=== PATIENT | male | born 1965 | race Two or more races ===

== ENCOUNTER 2017-07-30 00:38 | Emergency (ER) | payer MEDICAID ==
[~2017-07-30] VITALS: Ht 175.3 cm; Wt 103.0 kg
[2017-07-30] MEDS ORDERED: METOPROLOL TARTRATE 50 MG TAB PO ONE (01:45)
[2017-07-30 03:08] VITALS: BP 187/126
[2017-07-30] MEDS ORDERED: hydrALAZINE HCL 20 MG/ML VL IV ONE (03:15)
[2017-07-30] MEDS ORDERED: hydrALAZINE HCL 20 MG/ML VL ONE (03:25)
== END 2017-07-30 03:08 | disposition home or self-care (01) ==
LOC: EDBD 00:38 → ER 03:08
DX: S01.01XA Laceration without foreign body of scalp, initial encounter (principal); S09.90XA Unspecified injury of head, initial encounter; E78.5 Hyperlipidemia, unspecified; I10 Essential (primary) hypertension; E66.01 Morbid (severe) obesity due to excess calories; Z68.33 Body mass index [BMI] 33.0-33.9, adult; Z88.8 Allergy status to other drugs, medicaments and biological substances; W22.8XXA Striking against or struck by other objects, initial encounter; Y93.89 Activity, other specified; Y92.89 Other specified places as the place of occurrence of the external cause; Y99.8 Other external cause status
CPT/HCPCS: 12001; 70450; 96374; 99284; J0360

== ENCOUNTER 2019-08-21 14:24 | Emergency (ER) | payer MEDICAID ==
[2019-08-21 15:28] VITALS: BP 145/100
[2019-08-21] MEDS ORDERED: CEPHALEXIN 250 MG CAP PO ONE (15:30)
[2019-08-21] MEDS ORDERED: IBUPROFEN 800 MG TAB PO ONE (15:30)
== END 2019-08-21 16:19 | disposition home or self-care (01) ==
LOC: EDBD 14:24 → ER 14:24
DX: L03.113 Cellulitis of right upper limb (principal)